=== PATIENT | female | born 1950 | race Caucasian/White ===

== ENCOUNTER 2017-06-18 13:49 | Outpatient (CLI) | payer MEDICARE | END 2017-06-18 13:50 | disposition home or self-care (01) | LOC: DI 13:49 | PROVIDERS: ATTEND Psychiatry & Neurology Neurology | DX: I95.1 Orthostatic hypotension (principal); R42 Dizziness and giddiness | CPT/HCPCS: 93306 ==

== ENCOUNTER 2017-07-02 07:28 | Outpatient (CLI) | payer MEDICARE, OTHER ==
--- NOTE | 2017-07-05 13:28 | Ultrasound Report ---
CAROTID DUPLEX: 07/02/2017 CLINICAL INDICATION: Episodic lightheadedness. TECHNIQUE: Real-time sonographic vascular imaging was performed by the keno writer through the carotid arteries utilizing both color-flow and Doppler spectral analysis. Multiple care support representative static images were saved for review. RIGHT Vessel PSV cm/sec EDV cm/sec ICA/CCA RSV Ratio Degree of Stenosis Plaque Estimate % RCCA Prox 60 -- -- RCCA Dist 66 21 -- RECA 80 -- -- RT BULB 69 22 1.04 KATHYA Prox 94 35 1.42 KATHYA Mid 81 28 1.22 KATHYA Dist 79 30 1.19 RVA 53 -- -- RVA flow direction: Antegrade LEFT Vessel PSV cm/sec EDV cm/sec ICA/CCA RSV Ratio Degree of Stenosis Plaque Estimate % LCCA Prox 90 -- -- LCCA Dist 66 20 -- LECA 67 -- -- LFT BULB 39 14 0.59 LICA Prox 58 23 0.87 LICA Mid 46 21 0.69 LICA Dist 99 38 1.50 LVA 56 -- -- LVA flow direction: Antegrade Velocity criteria are extrapolated from diameter data as defined by the Society of Radiologists in Ultrasound Consensus Conference Radiology 2003; 229; 340-346. Degree of Stenosis % ICA PSV cm/sec ICA EDV cm/sec ICA/CCA PSV Ratio Plaque Estimate % Normal < 125 < 40 < 2.0 None <50 < 125 < 40 < 2.0 < 50 50-69 125-130 40-100 2.0-4.0 >/=50 >/=70 but less than near occlusion > 230 > 100 > 4.0 >/=50 Near occlusion High, low or undetectable Variable Variable Visible Total occlusion Undetectable Not applicable Not applicable No detectable lumen FINDINGS Right: There is minimal plaquing in right carotid bifurcation without evidence of a focal hemodynamically significant stenosis. Left: There is minimal plaquing in the left carotid bifurcation, without evidence of a focal hemodynamically significant stenosis. The vertebral arteries demonstrate antegrade flow bilaterally. IMPRESSION: MINIMAL PLAQUING, WITHOUT EVIDENCE OF A FOCAL HEMODYNAMICALLY SIGNIFICANT CAROTID STENOSIS. TD: 07/02/2017 10:39 [facility]
== END 2017-07-02 07:29 | disposition home or self-care (01) ==
LOC: DI 07:28
PROVIDERS: ATTEND Psychiatry & Neurology Neurology
DX: R42 Dizziness and giddiness (principal)
CPT/HCPCS: 93880

== ENCOUNTER 2018-01-14 09:47 | Outpatient (CLI) | payer MEDICARE ==
--- NOTE | 2018-01-17 09:45 | Mammography Report ---
Reason: SCREENING MAMMO Procedure Date: 01/14/2018 Accession Number: [id number] / [id number] Procedure: [facility] - Screening Mammo w/Adithya CPT Code: FULL RESULT: EXAM: Screening Mammo w/Adithya DATE: 01/14/2018 10:23 AM CLINICAL HISTORY: Screening encounter. Nulliparity. The examination represents a new baseline as the patient's cannot remember when and where the last mammographic examination occurred, remote history. TECHNIQUE: Bilateral CC and MLO views were obtained. COMPARISON: None. FINDINGS: The breasts demonstrate scattered fibroglandular densities bilaterally. No suspicious masses, clustered microcalcifications, or regions of architectural distortion are identified. IMPRESSION: Negative examination RECOMMENDATION: Routine annual screening unless otherwise clinically indicated. BIRADS CATEGORY 1: Negative STANDARD QUALIFYING STATEMENTS: 1. This examination was not reviewed with the aid of Computer-Aided Detection (CAD). 2. A negative or benign imaging report should not preclude biopsy if clinically suspicious findings are present. 3. Dense breasts may obscure an underlying neoplasm. 4. This examination was reviewed with the aid of 3D breast imaging (tomosynthesis).
== END 2018-01-14 09:48 | disposition home or self-care (01) ==
LOC: DI 09:47
DX: Z12.31 Encounter for screening mammogram for malignant neoplasm of breast (principal)
CPT/HCPCS: 77063; 77067

== ENCOUNTER 2019-11-05 09:44 | Outpatient (CLI) | payer MEDICARE ==
--- NOTE | 2019-11-08 08:15 | Mammography Report ---
BILATERAL DIGITAL SCREENING MAMMOGRAM 3D/2D: 11/05/2019 CLINICAL: Routine screening. Comparison is made to exams dated: 01/14/2018 mammogram, 10/01/2014 mammogram, and 01/01/2012 ultraso [facility] [place] [facility]. The tissue of both breasts is heterogeneously dense. This may lo wer the sensitivity of mammography. No significant masses, calcifications, or other findings are seen in either breast. There has been no significant interval change. IMPRESSION: NEGATIVE There is no mammographic evidence of malignancy. A 1 year screening mammogram is recommended. This exam was interpreted at Station ID: [id number]. NOTE: For mammograms, a report in lay terms will be sent to the patient. Approximately 15% of breast malignancies will not be visualized mammographically. In the management of a palpable breast mass, a negative mammogram must not discourage biopsy of a clinically suspicious lesion. Electronically Signed By: Obdulio Castro M.D. [facility] [place]11/06/2019 16:38:49 ACR BI-RADS Category 1: Negative 3341F PARENCHYMAL PATTERN: (D) - The breast(s) demonstrate(s) heterogeneously dense fibroglandular sailaja valdez. BI-RADS CATEGORY: (1) - 1 RECOMMENDATION: (ANNUAL) - Recommend routine annual screening mammography. [id number] 1 year screening LATERALITY: (B)
== END 2019-11-05 09:45 | disposition home or self-care (01) ==
LOC: DI 09:44
PROVIDERS: ATTEND Nurse Practitioner Family
DX: Z12.31 Encounter for screening mammogram for malignant neoplasm of breast (principal)
CPT/HCPCS: 77063; 77067

== ENCOUNTER 2021-01-21 07:41 | Outpatient (CLI) | payer MEDICARE ==
--- NOTE | 2021-01-22 11:47 | Mammography Report ---
BILATERAL DIGITAL SCREENING MAMMOGRAM 3D/2D WITH EXAGGERATED CC: 01/21/2021 CLINICAL: Routine screening. Comparison is made to exams dated: 11/05/2019 mammogram, 01/14/2018 mammogram, and [facility] The tissue of both breasts is heterogeneously dense. This may lowe r the sensitivity of mammography. No significant masses, calcifications, or other findings are seen in either breast. There has been no significant interval change. IMPRESSION: NEGATIVE There is no mammographic evidence of malignancy. A 1 year screening mammogram is recommended. This exam was interpreted at Station ID: [id number]. NOTE: For mammograms, a report in lay terms will be sent to the patient. Approximately 15% of breast malignancies will not be visualized mammographically. In the management of a palpable breast mass, a negative mammogram must not discourage biopsy of a clinically suspicious lesion. Electronically Signed By: Nish Blackwell M.D. [facility]/penrad:01/21/2021 12:31:11 ACR BI-RADS Category 1: Negative 3341F C -Heterogeneously dense 1 Mammogram [id number] 1 year screening B
== END 2021-01-21 07:42 | disposition home or self-care (01) ==
LOC: DI.S 07:41
PROVIDERS: ATTEND Nurse Practitioner Family
DX: Z12.31 Encounter for screening mammogram for malignant neoplasm of breast (principal)

== ENCOUNTER 2021-01-21 12:18 | Outpatient (CLI) | payer MEDICARE ==
--- NOTE | 2021-01-21 15:04 | Ultrasound Report ---
PROCEDURE: Head or Neck Soft Tissue INDICATIONS: THYROTOXICOSIS TECHNIQUE: Real-time scanning was performed of the thyroid gland, with image documentation. COMPARISON: None FINDINGS: Right: Thyroid lobe measures 3.6 x 1.6 x 1.4 cm, and is homogeneous in echotexture. Left: Thyroid lobe measures 3.3 x 1.7 x 1.2 cm, and is homogenous in echotexture. Isthmus: 5 mm thick. IMPRESSION: No focal lesions are identified. Thyroid is overall within normal limits for size. Reviewed by: Karrie Dee MD on 01/21/2021 3:03 PM PST Approved by: Karrie Dee MD on 01/21/2021 3:03 PM PST Station ID: [id number]
== END 2021-01-21 12:19 | disposition home or self-care (01) ==
LOC: DI 12:18
PROVIDERS: ATTEND Nurse Practitioner Family
DX: E05.90 Thyrotoxicosis, unspecified without thyrotoxic crisis or storm (principal)

== ENCOUNTER 2021-04-29 10:54 | Outpatient (CLI) | payer MEDICARE ==
[2021-04-29 15:35] LABS: THYROID STIMULATING HORMONE < 0.08 uIU/mL (0.34-5.60)
[2021-04-29 15:36] LABS: FREE T4 (FREE THYROXINE) 1.07 ng/dL (0.58-1.64)
== END 2021-04-29 10:55 | disposition home or self-care (01) ==
LOC: LAB.S 10:54
PROVIDERS: ATTEND Student in an Organized Health Care Education/Training Program
DX: E05.90 Thyrotoxicosis, unspecified without thyrotoxic crisis or storm (principal)
CPT/HCPCS: 36415; 84439; 84443

== ENCOUNTER 2021-06-13 13:41 | Outpatient (CLI) | payer MEDICARE ==
[2021-06-13 20:22] LABS: THYROID STIMULATING HORMONE 2.69 uIU/mL (0.34-5.60)
[2021-06-13 20:24] LABS: FREE T4 (FREE THYROXINE) 0.87 ng/dL (0.58-1.64)
== END 2021-06-13 13:42 | disposition home or self-care (01) ==
LOC: LAB.S 13:41
PROVIDERS: ATTEND Student in an Organized Health Care Education/Training Program
DX: E05.90 Thyrotoxicosis, unspecified without thyrotoxic crisis or storm (principal)
CPT/HCPCS: 36415; 84439; 84443

== ENCOUNTER 2022-02-12 10:52 | Outpatient (CLI) | payer MEDICARE ==
--- NOTE | 2022-02-12 17:31 | DEXA Report ---
PROCEDURE: Dexa Spine and/or Hip INDICATIONS: OSTEOPENIA TECHNIQUE: Dual energy x-ray absorptiometry (DXA) was performed on a link bird System. Regions measur ed are the AP Spine, femoral neck, and if needed forearm. COMPARISON: None. FINDINGS: Lumbar Spine: Bone Mineral Density 1.025 g/cm/cm,T score -1.5. Left Femoral Neck: Bone Mineral Density 0.760 g/cm/cm, T score -2.0. Left Hip: Bone Mineral Density 0.783 g/cm/cm,T score -1.8. (T score greater or equal to -1.0: NORMAL) (T score from -1.1 to -2.4: OSTEOPENIA) (T score less than or equal to -2.5 to: OSTEOPOROSIS) Impression: Osteopenia. Patients with diagnosis of osteoporosis or osteopenia should have regular bone mineral density assess ment. For those eligible for Medicare, routine testing is allowed once every 2 years. Testing frequ ency can be increased for patients who have rapidly progressing disease or for those who are receivin g medical therapy to restore bone mass. Reviewed by: Cheko Bob MD on 02/12/2022 5:30 PM PST Approved by: Cheko Bob MD on 02/12/2022 5:30 PM PST Station ID: [id number]
== END 2022-02-12 10:53 | disposition home or self-care (01) ==
LOC: DI 10:52
PROVIDERS: ATTEND Nurse Practitioner Family
DX: M85.80 Other specified disorders of bone density and structure, unspecified site (principal)

== ENCOUNTER 2022-12-15 09:13 | Outpatient (CLI) | payer MEDICARE ==
--- NOTE | 2022-12-15 09:34 | CARDIAC PROCEDURE NOTE ---
Stress Test Report Service Date: 12/15/22 Service Time: 09:30 Ordering Provider: Nory Rich NP Indication for Test: Assess progressive exertional dyspnea and fatigue, occurring over the past 2-3 months. Significant Medical History: Lisa reports episodic and progressive exertional dyspnea with increased exertional fatigue, starting in early September. At times her dyspnea has been prolonged, taking up to an hour to resolve completely. She has also noted increased awareness of being warm and tremulous. At times her shortness of breath has been associated with lightheadedness and/or numbness of the left face, neck and shoulder. Early on there was some chest discomfort, but she believes it was likely due to GERD, given her subsequent response to re- initiation of antiacid therapy. She has been considered to have "subclinical hyperthyroidism" in the past and she reports that her thyroid hormone levels were recently found to be significantly elevated; medication has been prescribed for hyperthyroidism, but not yet initiated. Cardiac Risk Factors: Positive for history of hyperlipidemia (not treated) and prior history of tobacco smoking (~10 pack-year history, quit 44 years ago); no history of hyper tension, diabetes or family history of coronary artery disease, though both her mother and brother have had strokes, the latter associated with atrial fibrillation. Type of Stress Test: ETT with Echocardiography Procedure: -Exercise Treadmill Test- After signing informed consent, the patient underwent echo imaging at rest and then performed treadmill exercise using a Renzo protocol. The patient exercised for 6 minutes 19 seconds and achieved a peak heart rate of 124 (85 percent predicted maximum heart rate for age), and an estimated workload of 7.5 METS. The test was terminated due to fatigue/shortness of breath. Resting heart rate: 64 Peak heart rate: 124 Normal HR response to exercise. Resting BP: 120/69 Peak BP: 207/62 Normal BP response to exercise. Rhythm during exercise: Sinus rhythm throughout, without ectopy. Symptoms: NO description of chest discomfort or other specific CV symptoms. EKG at rest showed normal sinus rhythm and is normal in all aspects. EKG at peak stress showed no ischemia by EKG criteria. In Recovery heart rate rapidly/normally returned toward baseline level with slower decline in BP (was 151/67 at 5:00). Echo imaging, performed at rest and with stress, will be reported separately. Misael Morris MD, was present throughout this treadmill stress study and supervised it in its entirety. Summary: 1) Exercise tolerance moderately increased for age and sex as evidenced by MARCELO of -15%. 2) Normal resting EKG. 3) Adequate level of exercise was achieved on this treadmill stress test. 4) Normal BP response to exercise. 5) No ischemic changes by EKG criteria were seen at peak stress. 6) Echo image interpretation reveals normal left ventricular size, wall thickness and systolic function, with appropriate hyperdynamic augmentation of all segments with exercise, indicating no evidence of prior infarct or inducible ischemia. On screening study borderline elevation of estimated pulmonary artery systolic pressure was seen, but there was no significant valvular abnormality detected. See separate report for more details. Conclusions and Recommendations: 1) No symptom, EKG or echocardiographic evidence of inducible ischemia detected. 2) Patient was advised to initiate the new thyroid medication (which we presume to be methimazole) and to follow up with Ms Rich and Dr San as previously arranged.
== END 2022-12-15 09:14 | disposition home or self-care (01) ==
LOC: DI 09:13
PROVIDERS: ATTEND Nurse Practitioner Family
DX: R06.09 Other forms of dyspnea (principal); E78.5 Hyperlipidemia, unspecified; Z87.891 Personal history of nicotine dependence; E05.90 Thyrotoxicosis, unspecified without thyrotoxic crisis or storm
CPT/HCPCS: 93350